=== PATIENT | female | born 1995 | race Caucasian/White ===

== ENCOUNTER 2019-01-01 19:50 | Emergency (ER) | payer OTHER ==
[~2019-01-01] VITALS: Ht 165.1 cm; Wt 54.4 kg
[~2019-01-01 19:50] MED LIST: ACID CONTROL75 MG NG; AFRIN30 ML NAS; AMOXICILLIN875 MG PO; MULTI VITAMIN1 EACH PO; NORCO 5-325 TA1 EACH PO; PEPTO-BISM262 MG/15 PO; PRENATAL CAPLE1 EACH PO; ZANTAC 7575 MG PO; ZOFRAN ODT4 MG PO
== END 2019-01-01 20:58 | disposition left against medical advice (07) ==
LOC: ED 19:50
DX: R07.9 Chest pain, unspecified (principal)

== ENCOUNTER 2020-03-25 06:02 | Emergency (ER) | payer OTHER ==
[~2020-03-25] VITALS: Ht 165.1 cm; Wt 55.3 kg
--- OUTSIDE RECORDS SUMMARY | 2020-03-25 06:06 | XMS ---
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 Care History Medical/Surgical 01/04/2019 [facility] - PATIENT TO ESTABLISH CARE WITH DR GUAMAN ON 01/21/19. - Patient is currently established with [facility]. If patient is seen in the ED during business hours. Please contact CHWs at [facility]. - Care Recommendation: This patient has had 5 or more Emergency Department visits in the last 12 months.\T\nbsp; Patient requires education on the scope and purpose of the ED as an acute care provider not a Primary Care Provider and should not be utilized for chronic conditions.\T\nbsp; These are guidelines and the provider should exercise clinical judgment when providing care. E.D. VISIT COUNT (12 MO.) 1 DARLENE Stallworth TOTAL 1 NOTE: Visits indicate total known visits. ED/UCC VISIT TRACKING (12 MO.) 03/25/2020 06:03 DARLENE Torres OR TYPE: Emergency COMPLAINT: - SKIN PROBLEM INPATIENT VISIT TRACKING (12 MO.) No inpatient visits to display in this time frame [email or web address]
[2020-03-25] MEDS ORDERED: KEFLEX500 MG PO (06:41)
== END 2020-03-25 06:56 | disposition home or self-care (01) ==
LOC: ED 06:02
DX: L03.011 Cellulitis of right finger (principal); F17.200 Nicotine dependence, unspecified, uncomplicated; Z88.7 Allergy status to serum and vaccine; Z88.8 Allergy status to other drugs, medicaments and biological substances
CPT/HCPCS: 99283

== ENCOUNTER 2021-04-20 14:56 | Emergency (ER) | payer OTHER ==
[~2021-04-20] VITALS: Ht 165.1 cm; Wt 55.3 kg
[~2021-04-20 14:56] MED LIST changes: +KEFLEX500 MG PO
--- OUTSIDE RECORDS SUMMARY | 2021-04-20 15:02 | XMS ---
PreManage Notification: ELIDA LOREDO [employer] Events No recent Security Events currently on file CRITERIA MET - Group Notification CARE PROVIDERS SHANA GUAMAN Internal Medicine 01/04/2019-Current PHONE: [phone] Stephen has no Care Guidelines for this patient. ENayeli VISIT COUNT (12 MO.) 1 DARLENE Stallworth TOTAL 1 NOTE: Visits indicate total known visits. ED/UCC VISIT TRACKING (12 MO.) 04/20/2021 14:57 DARLENE Torres OR TYPE: Emergency COMPLAINT: - CHEST/BACK/NECK PAIN INPATIENT VISIT TRACKING (12 MO.) No inpatient visits to display in this time frame [email or web address]
[2021-04-20] MEDS ORDERED: HAIR SKIN NAIL1 EACH PO (15:17)
--- NOTE | 2021-04-21 08:57 | EKG ---
[facility] [address] [place], [place] [address] Signed Normal sinus rhythm with sinus arrhythmia Normal ECG No previous ECGs available Confirmed by IMAN FRANCIS DO ([id number]) on 04/21/2021 8:57:24 AM Electronically Signed By: IMAN FRANCIS DO 04/21/21 0857 PATIENT NAME: ELIDA LOREDO Electrocardiogram DATE OF : [birth year] PHYSICIAN: IMAN FRANCIS DO REPORT #: [id number] REPORT IS CONFIDENTIAL AND NOT TO BE RELEASED WITHOUT AUTHORIZATION
== END 2021-04-20 15:38 | disposition home or self-care (01) ==
LOC: ED 14:56
DX: R07.9 Chest pain, unspecified (principal); M54.9 Dorsalgia, unspecified; F17.200 Nicotine dependence, unspecified, uncomplicated; Z88.8 Allergy status to other drugs, medicaments and biological substances; Z88.7 Allergy status to serum and vaccine
CPT/HCPCS: 71046; 93005; 93010; 99284-25